=== PATIENT | female | born 1990 | race Caucasian/White ===

== ENCOUNTER 2018-09-27 21:01 | Emergency (ER) | payer BC, SELFPAY ==
[2018-09-27 21:01] VITALS: BP 152/98; PULSE 95; RESP 28; TEMP 36.1; O2SAT 98; BMI 23.0
[2018-09-27 21:32] LABS: Bacteria 0 SEEN /hpf (None Seen); Mucous, Urine 0 SEEN /hpf (<or=2+); Red Blood Cells-Urine 0 SEEN /hpf (0-5); Squamous Epithelial Cells - UA 0 SEEN /hpf (5-10); White Blood Cells 0 SEEN /hpf (0-5)
[2018-09-27 21:39] LABS: Absolute Neutrophil Count 3.2 X10^3/uL (2.0-7.7); Eosinophils% 1.5 % (0-5); Hematocrit 39.1 % (37-47); Hemoglobin 12.6 g/dl (12.0-15.0); Lymphocyte % 39.5 % (19-41); Mean Corp Hgb Conc 32.2 g/gl (32-36); Mean Corpuscular Hgb 29.6 pg (27.0-32.0); Mean Platelet Vol. 11.2 fl (6.2-12.0); Monocyte% 10.6 % (0-10); Neutrophil # 3.17 X10^3/uL (2.7-7.7); Neutrophil % 48.2 % (47-70); POSITIVE DIFFERENTIAL NO; Platelet Count 240 K/mm3 (150-450); RBC Distribution Width CV 13.4 % (11.6-14.6); RBC Distribution Width SD 44.7 fl (35.1-43.9); Red Blood Count 4.25 M/mm3 (4.2-5.4); White Blood Count 6.6 K/mm3 (4.4-11.0)
[2018-09-27 21:40] LABS: POSITIVE COUNT NO; POSITIVE MORPHOLOGY NO
[2018-09-27 21:50] LABS: Color, Urine Yellow (Yellow); Glucose, Dipstick Normal (Normal); Ketone-Dipstick Negative (Negative); Leukocyte Esterase-Dipstick Negative /ul (Negative); Nitrite-Dipstick Negative (Negative); Occult Blood-Urine Negative /ul (Negative); Protein-Dipstick Negative (Negative); Urine Bilirubin Dipstick Negative (Negative); Urine Clarity Clear (Clear); Urine Urobilinogen Normal (Normal)
[2018-09-27 21:50] LABS: Anion Gap 7 (5-15); BUN 11 mg/dL (7-18); BUN/Creat Ratio 11.1 RATIO (10-20); Calcium,Total 8.7 mg/dL (8.5-10.1); Chloride 107 mmol/L (98-107); Creatinine, Serum 0.99 mg/dL (0.55-1.02); EST Glomerular Filtration Rate 71 mL/min (>60); Est Glom Filt Rate - Afr Amer 86 mL/min (>60); Estimated Creatinine Clearance 70.61 ml/min; Glucose 82 mg/dL (74-106); Potassium 3.6 mmol/L (3.5-5.1); Sodium Level 139 mmol/L (136-145)
[2018-09-27 21:55] LABS: Pregnancy, Serum, hCG Quali. NEGATIVE Negative (0-9 Nonpreg)
--- NOTE | 2018-09-27 21:55 | CT_ITS ---
STUDY: CT ABDOMEN AND PELVIS WITHOUT CONTRAST REASON FOR EXAM: Female, 28 years old. Chronic left lower quadrant pain RADIATION DOSAGE (If Supplied By Facility): CTDIvol = ( 6.06 ) mGy, DLP = ( 272.95 ) mGycm TECHNIQUE: Transaxial images were obtained from the dome of the diaphragm to the symphysis pubis without oral contrast, and without intravenous contrast. Sagittal and coronal images were reconstructed. Individualized dose optimization techniques were used for this CT. COMPARISON: None. FINDINGS: The visualized lung bases are unremarkable. The visualized portions of the heart are within normal limits. Normal liver. Normal gallbladder and extrahepatic biliary system. Normal spleen. Normal pancreas. Normal bilateral adrenal glands. Normal right kidney. Normal left kidney. Normal visualized stomach. Nonspecific diffuse ileus pattern with fecal retention in the colon. No evidence for small bowel obstruction or pneumoperitoneum. No evidence for acute appendicitis Normal abdominal aorta. Normal inferior vena cava. Normal retroperitoneum. Incompletely distended mildly thick-walled bladder likely of no significance IUD noted within the endometrial canal of the uterine fundus. Normal abdominal wall. Normal osseous structures. CT/Abdomen/Pelvis without Cont IMPRESSION: Nonspecific ileus with diffuse fecal retention in the colon. Intrauterine IUD noted at the uterine fundus. No other significant abnormalities Electronically Signed: Salvador Merida MD at 22:44 EST , Service support ,
[2018-09-27 22:45] VITALS: BP 114/77; PULSE 64; PULSE 68; RESP 18; TEMP 36.5; O2SAT 99
--- NOTE | 2018-09-27 23:45 | ED.VISSUMM ---
- ER Visit Summary Date of Service: 09/27/18 Chief Complaint: [Abdominal pain] History of Present Illness: The patient is a 28 F [presents with abdominal pain that started this evening. Patient states the pain started around 8:30 PM. Patient has been on her menstrual period for last for 5 days. Patient states that every time she has a period or she ovulates she has similar pain to this. Patient states that the symptoms have been going on for years and no etiology has been found. Patient denies any fevers. She denies any vomiting although when the pain was severe she had some nausea. Patient denies urinary symptoms. Patient has an IUD. Patient has a scheduled appointment with PHYSICS DEPARTMENT CHAIR but not till October.] On my evaluation of the patient she states that the pain is significantly improved compared to what it was when she initially came in when it was a 10 out of 10. Patient describes upper abdomen discomfort that is dull and somewhat crampy but today she had a severe stabbing sharp pain in the left lower quadrant. Physical Examination: [HEENT-PERRLA, EOMI. Cranial nerves II through XII grossly intact. TMs clear. Mucous membranes moist. No adenopathy. Cardiovascular-regular rate and rhythm without murmur or ectopy Lungs-clear to auscultation, chest wall stable without crepitus or subcu emphysema Abdomen-hyperactive bowel sounds. Mild diffuse tenderness. There is no rebound, rigidity, or perineal signs. Extremities-intact ?4, normal range of motion, normal pulses, atraumatic] Test Results: [CBC with differential obtained was normal. Chemistries were normal. HCG was negative. Urine was normal. CT flank showed a nonspecific ileus otherwise nothing acute.] Emergency Department Course and Treatment: [Patient did not want anything for pain in the emergency department. On repeat evaluation at 2144 she is significantly improved and her abdomen is benign.] Treatment Plan: [Patient will be given a prescription for Bentyl and advised to follow-up with PHYSICS DEPARTMENT CHAIR as well as GI if her symptoms persist. It is unclear if patient has endometriosis given that the symptoms are related to her menstrual period versus IBS versus other.] Disposition: [Discharged home in stable condition] Impression: [Abdominal pain-etiology uncertain.] This note was generated with [employer] software. It may contain incorrect words, spelling, and punctuation that were not noted in review of the chart prior to signing ED Disposition - Plan for ED Patient: Referrals: Meredith Marshall DO [Primary Care Provider] -
--- NOTE | 2018-09-27 23:48 | ED.DCSUM_ITS ---
- ER Visit Summary Date of Service: 09/27/18 Chief Complaint: [Abdominal pain] History of Present Illness: The patient is a 28 F [presents with abdominal pain that started this evening. Patient states the pain started around 8:30 PM. Patient has been on her menstrual period for last for 5 days. Patient states that every time she has a period or she ovulates she has similar pain to this. Patient states that the symptoms have been going on for years and no etiology has been found. Patient denies any fevers. She denies any vomiting although when the pain was severe she had some nausea. Patient denies urinary symptoms. Patient has an IUD. Patient has a scheduled appointment with CHEMISTRY PHYSICS TEACHER but not till October.] On my evaluation of the patient she states that the pain is significantly improved compared to what it was when she initially came in when it was a 10 out of 10. Patient describes upper abdomen discomfort that is dull and somewhat crampy but today she had a severe stabbing sharp pain in the left lower quadrant. Physical Examination: [HEENT-PERRLA, EOMI. Cranial nerves II through XII grossly intact. TMs clear. Mucous membranes moist. No adenopathy. Cardiovascular-regular rate and rhythm without murmur or ectopy Lungs-clear to auscultation, chest wall stable without crepitus or subcu emphysema Abdomen-hyperactive bowel sounds. Mild diffuse tenderness. There is no rebound, rigidity, or perineal signs. Extremities-intact ?4, normal range of motion, normal pulses, atraumatic] Test Results: [CBC with differential obtained was normal. Chemistries were normal. HCG was negative. Urine was normal. CT flank showed a nonspecific ileus otherwise nothing acute.] Emergency Department Course and Treatment: [Patient did not want anything for pain in the emergency department. On repeat evaluation at 2144 she is significantly improved and her abdomen is benign.] Treatment Plan: [Patient will be given a prescription for Bentyl and advised to follow-up with CHEMISTRY PHYSICS TEACHER as well as GI if her symptoms persist. It is unclear if patient has endometriosis given that the symptoms are related to her menstrual period versus IBS versus other.] Disposition: [Discharged home in stable condition] Impression: [Abdominal pain-etiology uncertain.] This note was generated with [employer]ation software. It may contain incorrect words, spelling, and punctuation that were not noted in review of the chart prior to signing ED Disposition - Plan for ED Patient: Referrals: Meredith Marshall DO [Primary Care Provider] -
--- NOTE | 2018-09-27 23:48 | ED.DEP ---
ED Disposition - Plan for ED Patient: Prescriptions: Dicyclomine HCl [Bentyl] 20 mg PO TIDAC #20 cap Referrals: Meredith Marshall DO [Primary Care Provider] - 3-5 Days Freddie Hair MD [STAFF PHYSICIAN] - 3-5 Days
[2018-09-28 00:02] VITALS: BP 114/77; PULSE 88; RESP 18; TEMP 36.5; O2SAT 99
[2018-09-28 00:05] VITALS: PULSE 72; RESP 18; O2SAT 99
== END 2018-09-28 00:06 | disposition home or self-care (01) ==
LOC: ED 22:01
PROVIDERS: Emergency Provider Emergency Medicine; Family Provider Family Medicine; PCP Family Medicine
DX: R10.9 Unspecified abdominal pain (principal); F12.90 Cannabis use, unspecified, uncomplicated
CPT/HCPCS: 74176; 80048; 81001; 84703; 85025; 99283; A4216

== ENCOUNTER → 2018-12-01 11:44 | Outpatient (CLI) | payer BC, SELFPAY ==
[2018-12-01 11:09] VITALS: BMI 23.0
[2018-12-01 13:53] LABS: HIV - WCH Non-Reactive (Nonreactive)
[2018-12-01 18:20] LABS: Chlamydia Trachomatis by PCR Negative (Negative); Neisserai gonorrhoeae by PCR Negative (Negative); Probe Check PASS; Sample Adequacy Control PASS; Specimen Processing Control PASS
[2018-12-02 01:44] LABS: Rapid Plasmin Reagin (RPR) NONREACTIVE (NONREACTIVE)
[2018-12-03 12:06] LABS: HCV Quant. RNA PCR HCV Not Detected IU/mL (.)
[2018-12-05 11:16] LABS: HSV 1 IgG < 0.91 index (0.00-0.90); HSV 2 IgG < 0.91 index (0.00-0.90)
[2018-12-06 17:13] LABS: HPV Reflexed? NOT INDICATED
== END ==
PROVIDERS: Family Provider Family Medicine; PCP Family Medicine; Referring Provider Nurse Practitioner Women's Health; Visit Provider Nurse Practitioner Women's Health
DX: Z11.3 Encounter for screening for infections with a predominantly sexual mode of transmission (principal); Z12.4 Encounter for screening for malignant neoplasm of cervix
CPT/HCPCS: 36415; 86592; 86695; 86696; 86703; 87491; 87522; 87591; 87624; 88175; G0145

== ENCOUNTER → 2018-12-08 11:08 | Outpatient (CLI) | payer BC, SELFPAY ==
[2018-12-01 11:09] VITALS: BMI 23.0
--- NOTE | 2018-12-08 11:11 | US_ITS ---
STUDY: ULTRASOUND OF THE FEMALE PELVIS - COMPLETE REASON FOR EXAM: Female, 28 years old. Pain LMP: 11/14/2018 TECHNIQUE: Transabdominal and Transvaginal TECHNICAL QUALITY: Adequate. COMPARISON: None. FINDINGS: The uterus is anteverted and is tilted to the right side of the pelvis. The uterus measures 7.9 x 4.3 x 4.3 cm. Normal uterine cervix. The endometrium measures 6 mm in thickness, and is hyperechoic. There is no demonstrated endometrial mass. There is no demonstrated myometrial mass. I.U.D. - The patient does have an I.U.D. IUD is in a satisfactory position The right ovary is visualized. The right ovary measures 3.3 x 3.0 x 2.0 cm. There is no right ovarian cyst or ovarian mass. There is no visualized right adnexal mass or complex lesion. There is normal arterial and normal venous vascularity. The left ovary is visualized. The left ovary measures 2.4 x 2.2 x 1.6 cm. There is no left ovarian cyst or ovarian mass. There is no visualized left adnexal mass or complex lesion. There is normal arterial and normal venous vascularity. There is no fluid in the cul-de-sac. The bladder is sonographically normal US/Pelvic (Non ) IMPRESSION: Normal female pelvis. IUD noted in satisfactory position Electronically Signed: Octavio Rose MD at 13:33 EDT , Service support ,
--- NOTE | 2018-12-08 11:11 | US_ITS ---
STUDY: ULTRASOUND OF THE FEMALE PELVIS - COMPLETE REASON FOR EXAM: Female, 28 years old. Pain LMP: 11/14/2018 TECHNIQUE: Transabdominal and Transvaginal TECHNICAL QUALITY: Adequate. COMPARISON: None. FINDINGS: The uterus is anteverted and is tilted to the right side of the pelvis. The uterus measures 7.9 x 4.3 x 4.3 cm. Normal uterine cervix. The endometrium measures 6 mm in thickness, and is hyperechoic. There is no demonstrated endometrial mass. There is no demonstrated myometrial mass. I.U.D. - The patient does have an I.U.D. IUD is in a satisfactory position The right ovary is visualized. The right ovary measures 3.3 x 3.0 x 2.0 cm. There is no right ovarian cyst or ovarian mass. There is no visualized right adnexal mass or complex lesion. There is normal arterial and normal venous vascularity. The left ovary is visualized. The left ovary measures 2.4 x 2.2 x 1.6 cm. There is no left ovarian cyst or ovarian mass. There is no visualized left adnexal mass or complex lesion. There is normal arterial and normal venous vascularity. There is no fluid in the cul-de-sac. The bladder is sonographically normal US/Transvaginal Non- IMPRESSION: Normal female pelvis. IUD noted in satisfactory position Electronically Signed: Octavio Rose MD at 13:33 EDT , Service support ,
== END ==
PROVIDERS: Referring Provider Nurse Practitioner Women's Health; Visit Provider Nurse Practitioner Women's Health
DX: R10.2 Pelvic and perineal pain (principal)
CPT/HCPCS: 76830; 76856; 93976

== ENCOUNTER → 2019-02-09 09:19 | Outpatient (CLI) | payer BC, SELFPAY ==
[2018-12-01 11:09] VITALS: BMI 23.0
[2019-02-09 12:25] LABS: Absolute Lymphocyte Count 1.37 X10^3/ul (0.83-4.51); Absolute Neutrophil Count 3.5 X10^3/uL (2.0-7.7); Eosinophil# 0.09 X10^3/uL; Eosinophils% 1.7 % (0-5); Hematocrit 36.3 % (37-47); Hemoglobin 11.5 g/dl (12.0-15.0); Lymphocyte # 1.37 X10^3/ul (4.0); Lymphocyte % 25.1 % (19-41); Mean Corp Hgb Conc 31.7 g/gl (32-36); Mean Corpuscular Hgb 27.7 pg (27.0-32.0); Mean Corpuscular Volume 87.5 fL (81-99); Mean Platelet Vol. 11.7 fl (6.2-12.0); Monocyte# 0.45 X10^3/uL; Monocyte% 8.3 % (0-10); Neutrophil # 3.54 X10^3/uL (2.7-7.7); Neutrophil % 64.9 % (47-70); Platelet Count 253 K/mm3 (150-450); RBC Distribution Width CV 14.6 % (11.6-14.6); RBC Distribution Width SD 46.7 fl (35.1-43.9); Red Blood Count 4.15 M/mm3 (4.2-5.4); White Blood Count 5.5 K/mm3 (4.4-11.0)
[2019-02-09 12:30] LABS: POSITIVE COUNT NO; POSITIVE DIFFERENTIAL NO; POSITIVE MORPHOLOGY NO
[2019-02-09 12:41] LABS: Vitamin D,25 Hydroxy 25.9 ng/mL (29.95-100.01)
[2019-02-09 14:00] LABS: ALB/GLOB Ratio 1.2 RATIO (0.9-2.4); AST(SGOT) 14 U/L (15-37); Alanine Aminotransfer ALT/SGPT 18 U/L (13-56); Alkaline Phosphatase 45 U/L (45-117); Anion Gap 6 (5-15); BUN 13 mg/dL (7-18); Calcium,Total 8.5 mg/dL (8.5-10.1); Chloride 109 mmol/L (98-107); Cholesterol 136 mg/dL (200); Creatinine, Serum 0.76 mg/dL (0.55-1.02); EST Glomerular Filtration Rate 96 mL/min (>60); Est Glom Filt Rate - Afr Amer 116 mL/min (>60); Free T3 2.5 pg/mL (2.18-3.98); Globulin 3.3 g/dL (2.2-4.2); Glucose 85 mg/dL (74-106); High Density Lipoprotein 65 mg/dL; Iron 25 ug/dL (50-170); Protein, Total 7.3 g/dL (6.4-8.2); Sodium Level 139 mmol/L (136-145); T4 Free Direct 0.86 ng/dL (0.76-1.46); Thyroid Stim Hormone (TSH) 3.46 uIU/mL (0.358-3.74); Triglycerides 51 mg/dL; Very Low Density Lipoprotein 10 mg/dL (5-40)
== END ==
PROVIDERS: Family Provider Family Medicine; PCP Family Medicine; Visit Provider Family Medicine
DX: E55.9 Vitamin D deficiency, unspecified (principal); E78.5 Hyperlipidemia, unspecified; D64.9 Anemia, unspecified; R53.83 Other fatigue
CPT/HCPCS: 36415; 80053; 80061; 82306; 83540; 84439; 84443; 84481; 85025

== ENCOUNTER → 2020-09-23 12:52 | Outpatient (CLI) | payer OTHER, SELFPAY ==
[2018-12-01 11:09] VITALS: BMI 23.0
[2020-09-23 17:43] LABS: Absolute Lymphocyte Count 1.85 X10^3/uL (0.83-4.51); Basophil# 0.01 X10^3/uL; Basophil% 0.2 % (0-1); Eosinophil# 0.03 X10^3/uL; Eosinophils% 0.5 % (0-5); Hematocrit 36.3 % (37-47); Hemoglobin 11.3 g/dL (12.0-15.0); Lymphocyte # 1.85 X10^3/ul (4.0); Lymphocyte % 28.7 % (19-41); Mean Corp Hgb Conc 31.1 g/dL (32-36); Mean Corpuscular Volume 86.6 fL (81-99); Mean Platelet Vol. 12.7 fl (6.2-12.0); Monocyte% 7.8 % (0-10); NRBC Flagged by Analyzer 0 % (0-5); Neutrophil # 4.03 X10^3/uL (2.7-7.7); Neutrophil % 62.5 % (47-70); Platelet Count 239 K/mm3 (150-450); RBC Distribution Width CV 15.2 % (11.6-14.6); RBC Distribution Width SD 48.8 fl (35.1-43.9); Red Blood Count 4.19 M/mm3 (4.2-5.4); White Blood Count 6.4 K/mm3 (4.4-11.0)
[2020-09-23 18:05] LABS: Progesterone Level 4.98 ng/mL (See Comment)
[2020-09-23 18:41] LABS: ALB/GLOB Ratio 1.2 RATIO (0.9-2.4); AST(SGOT) 14 U/L (15-37); Alanine Aminotransfer ALT/SGPT 20 U/L (13-56); Albumin, Serum 4.2 g/dL (3.2-5.0); Alkaline Phosphatase 52 U/L (45-117); Anion Gap 7 (5-15); BUN 8 mg/dL (7-18); BUN/Creat Ratio 11.5 RATIO (10-20); Calcium,Total 8.4 mg/dL (8.5-10.1); Chloride 108 mmol/L (98-107); Creatinine, Serum 0.69 mg/dL (0.55-1.02); EST Glomerular Filtration Rate 106 mL/min (>60); Est Glom Filt Rate - Afr Amer 128 mL/min (>60); Estradiol 85.5 pg/mL; Follicle Stimulating Hormone 3.6 mIU/mL; Free T3 2.3 pg/mL (2.18-3.98); Globulin 3.4 g/dL (2.2-4.2); Glucose 80 mg/dL (74-106); Luteinizing Hormone 2.3 mIU/mL; Potassium 3.6 mmol/L (3.5-5.1); Protein, Total 7.6 g/dL (6.4-8.2); Sodium Level 139 mmol/L (136-145); Thyroid Stim Hormone (TSH) 1.79 uIU/mL (0.358-3.74)
[2020-09-27 13:47] LABS: Testosterone Free 1.1 pg/mL (0.0-4.2)
== END ==
PROVIDERS: PCP Family Medicine; Visit Provider Family Medicine
DX: N93.8 Other specified abnormal uterine and vaginal bleeding (principal); R53.83 Other fatigue; Z51.81 Encounter for therapeutic drug level monitoring
CPT/HCPCS: 36415; 80053; 82670; 83001; 83002; 84144; 84402; 84439; 84443; 84481; 85025

== ENCOUNTER → 2021-06-11 18:00 | Outpatient (CLI) | payer OTHER, SELFPAY | PROVIDERS: PCP Family Medicine; Visit Provider Family Medicine | DX: Z20.828 Contact with and (suspected) exposure to other viral communicable diseases (principal) | CPT/HCPCS: 87635; U0005; U0003 ==

== ENCOUNTER → 2022-10-22 | Outpatient (CLI) | payer BC, SELFPAY ==
[2022-10-22 12:34] LABS: Erythrocyte Sedimentation Rate < 1 mm/hr (0-30)
[2022-10-22 12:36] LABS: Absolute Lymphocyte Count 1.38 X10^3/uL (0.83-4.51); Absolute Neutrophil Count 3.5 X10^3/uL (2.0-7.7); Basophil# 0.01 X10^3/uL; Basophil% 0.2 % (0-1); Eosinophil# 0.06 X10^3/uL; Eosinophils% 1.1 % (0-5); Hematocrit 39.5 % (37-47); Hemoglobin 12.5 g/dL (12.0-15.0); Lymphocyte # 1.38 X10^3/ul (0.83-4.51); Lymphocyte % 25.2 % (19-41); Mean Corp Hgb Conc 31.6 g/dL (32-36); Mean Corpuscular Hgb 29.9 pg (27.0-32.0); Mean Corpuscular Volume 94.5 fL (81-99); Mean Platelet Vol. 11.8 fl (6.2-12.0); Monocyte# 0.57 X10^3/uL; Monocyte% 10.4 % (0-10); NRBC Flagged by Analyzer 0 % (0-5); Neutrophil # 3.45 X10^3/uL (2.7-7.7); Neutrophil % 62.9 % (47-70); Platelet Count 214 K/mm3 (150-450); RBC Distribution Width CV 14.1 % (11.6-14.6); RBC Distribution Width SD 49.2 fl (35.1-43.9); Red Blood Count 4.18 M/mm3 (4.2-5.4); White Blood Count 5.5 K/mm3 (4.4-11.0)
[2022-10-22 12:57] LABS: ALB/GLOB Ratio 1.2 RATIO (0.9-2.4); AST(SGOT) 15 U/L (15-37); Alanine Aminotransfer ALT/SGPT 24 U/L (13-56); Albumin, Serum 3.8 g/dL (3.2-5.0); Alkaline Phosphatase 41 U/L (45-117); Anion Gap 7 (5-15); BUN 13 mg/dL (7-18); BUN/Creat Ratio 15.6 RATIO (10-20); CRP < 2.90 mg/L (0.0-3.0); Calcium,Total 8.5 mg/dL (8.5-10.1); Chloride 108 mmol/L (98-107); Cholesterol 160 mg/dL (200); Creatinine, Serum 0.83 mg/dL (0.55-1.02); EST Glomerular Filtration Rate 85 mL/min (>60); Est Glom Filt Rate - Afr Amer 103 mL/min (>60); Free T3 2.6 pg/mL (2.18-3.98); Globulin 3.2 g/dL (2.2-4.2); Glucose 83 mg/dL (74-106); High Density Lipoprotein 72 mg/dL; LDH 142 U/L (84-246); Potassium 4.1 mmol/L (3.5-5.1); Sodium Level 140 mmol/L (136-145); T4 Free Direct 0.89 ng/dL (0.76-1.46); Thyroid Stim Hormone (TSH) 1.95 uIU/mL (0.358-3.74); Triglycerides 25 mg/dL; Very Low Density Lipoprotein 5 mg/dL (5-40)
== END | disposition home or self-care (01) ==
PROVIDERS: PCP Family Medicine; Visit Provider Family Medicine
DX: M25.50 Pain in unspecified joint (principal); M79.10 Myalgia, unspecified site; R59.1 Generalized enlarged lymph nodes; E03.9 Hypothyroidism, unspecified; Z13.220 Encounter for screening for lipoid disorders; Z51.81 Encounter for therapeutic drug level monitoring
CPT/HCPCS: 36415; 80053; 80061; 83615; 84439; 84443; 84481; 85025; 85652; 86140

== ENCOUNTER → 2023-12-31 | Outpatient (CLI) | payer SELFPAY ==
[2023-12-31 17:04] LABS: Absolute Lymphocyte Count 1.37 X10^3/uL (0.83-4.51); Absolute Neutrophil Count 3.1 X10^3/uL (2.0-7.7); Basophil# 0.01 X10^3/uL; Basophil% 0.2 % (0-1); Eosinophil# 0.07 X10^3/uL; Eosinophils% 1.4 % (0-5); Hematocrit 37.7 % (37-47); Hemoglobin 12.2 g/dL (12.0-15.0); Lymphocyte # 1.37 X10^3/ul (0.83-4.51); Lymphocyte % 26.4 % (19-41); Mean Corp Hgb Conc 32.4 g/dL (32-36); Mean Corpuscular Hgb 28.7 pg (27.0-32.0); Mean Corpuscular Volume 88.7 fL (81-99); Mean Platelet Vol. 11.4 fl (6.2-12.0); Monocyte# 0.59 X10^3/uL; Monocyte% 11.4 % (0-10); NRBC Flagged by Analyzer 0 % (0-5); Neutrophil # 3.13 X10^3/uL (2.7-7.7); Neutrophil % 60.4 % (47-70); Platelet Count 207 K/mm3 (150-450); RBC Distribution Width CV 15.7 % (11.6-14.6); RBC Distribution Width SD 51.1 fl (35.1-43.9); Red Blood Count 4.25 M/mm3 (4.2-5.4); White Blood Count 5.2 K/mm3 (4.4-11.0)
[2023-12-31 17:24] LABS: Hemoglobin A1c 4.9 % (3.8-5.6)
[2023-12-31 17:35] LABS: Vitamin B12 428 pg/mL (211-911); Vitamin D,25 Hydroxy 47.2 ng/mL
[2023-12-31 17:40] LABS: ALB/GLOB Ratio 1.3 RATIO (0.9-2.4); AST(SGOT) 31 U/L (15-37); Alanine Aminotransfer ALT/SGPT 65 U/L (13-56); Albumin, Serum 3.7 g/dL (3.2-5.0); Alkaline Phosphatase 57 U/L (45-117); Anion Gap 6 (5-15); BUN 13 mg/dL (7-18); BUN/Creat Ratio 27.2 RATIO (10-20); Chloride 109 mmol/L (98-107); Cholesterol 133 mg/dL (200); Creatinine, Serum 0.48 mg/dL (0.55-1.02); EST Glomerular Filtration Rate 160 mL/min (>60); Est Glom Filt Rate - Afr Amer 193 mL/min (>60); Ferritin 96 ng/mL (8-252); Globulin 2.9 g/dL (2.2-4.2); Glucose 84 mg/dL (74-106); High Density Lipoprotein 57 mg/dL; Iron 90 ug/dL (50-170); Potassium 3.9 mmol/L (3.5-5.1); Protein, Total 6.6 g/dL (6.4-8.2); Sodium Level 139 mmol/L (136-145); T4 Free Direct 2.62 ng/dL (0.76-1.46); Thyroid Stim Hormone (TSH) 0.01 uIU/mL (0.358-3.74); Triglycerides 52 mg/dL; Very Low Density Lipoprotein 10 mg/dL (5-40)
== END | disposition home or self-care (01) ==
PROVIDERS: PCP Family Medicine; Referring Provider Family Medicine; Visit Provider Family Medicine
DX: Z00.00 Encounter for general adult medical examination without abnormal findings (principal); E55.9 Vitamin D deficiency, unspecified; E03.9 Hypothyroidism, unspecified; R53.83 Other fatigue; Z83.3 Family history of diabetes mellitus
CPT/HCPCS: 36415; 80053; 80061; 82306; 82607; 82728; 83036; 83540; 84439; 84443; 85025

== ENCOUNTER → 2024-02-03 | Outpatient (CLI) | payer OTHER, SELFPAY ==
[2024-02-03 18:45] LABS: Free T3 1.9 pg/mL (2.18-3.98); T4 Free Direct 0.58 ng/dL (0.76-1.46); Thyroid Stim Hormone (TSH) 1.08 uIU/mL (0.358-3.74)
[2024-02-07 16:09] LABS: Thyroglobulin Antibody < 1.0 IU/mL (0.0-0.9); Thyroid Peroxidase AB 110 IU/mL (0-34)
== END | disposition home or self-care (01) ==
LOC: MTLAB 16:25
PROVIDERS: PCP Family Medicine; Referring Provider Family Medicine; Visit Provider Family Medicine
DX: E03.9 Hypothyroidism, unspecified (principal)
CPT/HCPCS: 36415; 84439; 84443; 84481; 86376; 86800

== ENCOUNTER → 2024-03-28 | Outpatient (CLI) | payer OTHER, SELFPAY ==
[2024-03-28 15:49] LABS: Free T3 2.2 pg/mL (2.18-3.98); T4 Free Direct 0.56 ng/dL (0.76-1.46)
[2024-03-30 14:11] LABS: Thyroglobulin Antibody < 1.0 IU/mL (0.0-0.9); Thyroid Peroxidase AB 188 IU/mL (0-34)
== END | disposition home or self-care (01) ==
LOC: MTLAB 11:09
PROVIDERS: PCP Family Medicine; Referring Provider Family Medicine; Visit Provider Family Medicine
DX: E03.9 Hypothyroidism, unspecified (principal)
CPT/HCPCS: 36415; 84439; 84443; 84481; 86376; 86800

== ENCOUNTER → 2024-04-28 | Outpatient (CLI) | payer OTHER, SELFPAY ==
[2024-04-28 18:52] LABS: Free T3 2.7 pg/mL (2.18-3.98); T4 Free Direct 0.88 ng/dL (0.76-1.46); Thyroid Stim Hormone (TSH) 0.654 uIU/mL (0.358-3.740)
== END | disposition home or self-care (01) ==
PROVIDERS: PCP Family Medicine; Referring Provider Family Medicine; Visit Provider Family Medicine
DX: E03.9 Hypothyroidism, unspecified (principal)
CPT/HCPCS: 36415; 84439; 84443; 84481

== ENCOUNTER → 2024-06-28 | Outpatient (CLI) | payer OTHER, SELFPAY ==
[2024-06-28 18:39] LABS: Free T3 7.7 pg/mL (2.18-3.98); T4 Free Direct 1.73 ng/dL (0.76-1.46); Thyroid Stim Hormone (TSH) 0.005 uIU/mL (0.358-3.740)
== END | disposition home or self-care (01) ==
PROVIDERS: PCP Family Medicine; Referring Provider Family Medicine; Visit Provider Family Medicine
DX: E03.9 Hypothyroidism, unspecified (principal)
CPT/HCPCS: 36415; 84439; 84443; 84481

== ENCOUNTER → 2024-08-14 | Outpatient (CLI) | payer OTHER, SELFPAY ==
[2024-08-14 18:25] LABS: Free T3 8.5 pg/mL (2.18-3.98); T4 Free Direct 1.82 ng/dL (0.76-1.46); Thyroid Stim Hormone (TSH) < 0.005 uIU/mL (0.358-3.740)
== END | disposition home or self-care (01) ==
PROVIDERS: PCP Family Medicine; Referring Provider Family Medicine; Visit Provider Family Medicine
DX: E03.9 Hypothyroidism, unspecified (principal)
CPT/HCPCS: 36415; 84439; 84443; 84481

== ENCOUNTER → 2024-09-19 | Outpatient (CLI) | payer OTHER, SELFPAY ==
[2024-09-19 17:59] LABS: Free T3 4.2 pg/mL (2.18-3.98); T4 Free Direct 1.22 ng/dL (0.76-1.46); Thyroid Stim Hormone (TSH) < 0.005 uIU/mL (0.358-3.740)
[2024-09-21 12:08] LABS: ANTINUCLEAR ANTIBODIES DIRECT Negative (Negative)
[2024-09-22 15:07] LABS: Thyroglobulin Antibody < 1.0 IU/mL (0.0-0.9); Thyroid Peroxidase AB 153 IU/mL (0-34)
== END | disposition home or self-care (01) ==
LOC: MTLAB 16:39
PROVIDERS: PCP Family Medicine; Referring Provider Family Medicine; Visit Provider Family Medicine
DX: E03.9 Hypothyroidism, unspecified (principal)
CPT/HCPCS: 36415; 84439; 84443; 84481; 86038; 86376; 86800

== ENCOUNTER → 2024-11-02 | Outpatient (CLI) | payer OTHER, SELFPAY ==
[2024-11-02 18:30] LABS: Free T3 3.1 pg/mL (2.18-3.98); Thyroid Stim Hormone (TSH) 0.063 uIU/mL (0.300-4.200)
== END | disposition home or self-care (01) ==
PROVIDERS: PCP Family Medicine; Referring Provider Family Medicine; Visit Provider Family Medicine
DX: E03.9 Hypothyroidism, unspecified (principal)
CPT/HCPCS: 36415; 84439; 84443; 84481

== ENCOUNTER → 2024-12-21 | Outpatient (CLI) | payer OTHER, SELFPAY ==
[2024-12-21 14:22] LABS: Free T3 2.8 pg/mL (2.18-3.98); Thyroid Stim Hormone (TSH) 0.721 uIU/mL (0.300-4.200)
== END | disposition home or self-care (01) ==
LOC: MTLAB 10:08
PROVIDERS: PCP Family Medicine; Referring Provider Nurse Practitioner Family; Visit Provider Nurse Practitioner Family
DX: E03.9 Hypothyroidism, unspecified (principal)
CPT/HCPCS: 36415; 84439; 84443; 84481

== ENCOUNTER → 2025-02-06 | Outpatient (CLI) | payer OTHER, SELFPAY ==
[2025-02-06 19:12] LABS: Estradiol 34.3 pg/mL; Follicle Stimulating Hormone 7.4 mIU/mL; Free T3 2.5 pg/mL (2.18-3.98); T4 Total, Thyroxin 4.1 ug/dL (4.8-13.9)
[2025-02-07 14:37] LABS: T3 Total - Triiodothyronine 0.82 ng/mL (0.80-2.00)
[2025-02-08 04:59] LABS: PROGESTERONE 0.3 ng/mL (.)
== END | disposition home or self-care (01) ==
PROVIDERS: PCP Family Medicine; Referring Provider Family Medicine; Visit Provider Family Medicine
DX: E05.90 Thyrotoxicosis, unspecified without thyrotoxic crisis or storm (principal); N93.8 Other specified abnormal uterine and vaginal bleeding
CPT/HCPCS: 36415; 82670; 83001; 83002; 84144; 84436; 84439; 84443; 84480; 84481

== ENCOUNTER → 2025-02-21 | Outpatient (CLI) | payer OTHER, SELFPAY ==
[2025-02-21 17:48] LABS: Hematocrit 38.5 % (37-47); Hemoglobin 12.7 g/dL (12.0-15.0); Immature Granulocytes Count 0.010 X10^3/uL (0.0-0.0); Mean Corp Hgb Conc 33.0 g/dL (32-36); Mean Corpuscular Volume 93.9 fL (81-99); Mean Platelet Vol. 12.0 fl (6.2-12.0); NRBC Flagged by Analyzer 0 % (0-5); Platelet Count 223 K/mm3 (150-450); RBC Distribution Width CV 13.1 % (11.6-14.6); RBC Distribution Width SD 44.9 fl (35.1-43.9); Red Blood Count 4.10 M/mm3 (4.2-5.4); White Blood Count 5.7 K/mm3 (4.4-11.0)
[2025-02-21 18:11] LABS: AST(SGOT) 18 U/L (<=31); Alanine Aminotransfer ALT/SGPT 13 U/L (<=34); Albumin, Serum 4.4 g/dL (3.5-5.0); Alkaline Phosphatase 70 U/L (35-104); Anion Gap 11 (5-15); BUN 12 mg/dL (4-19); BUN/Creat Ratio 17.3 RATIO (10-20); Calcium,Total 8.8 mg/dL (7.6-11.0); Carbon Dioxide 22.1 mmol/L (21.0-32.0); Chloride 105 mmol/L (98-108); Free T3 4.6 pg/mL (2.18-3.98); Globulin 2.3 g/dL (2.2-4.2); Glucose 86 mg/dL (70-99); Potassium 4.3 mmol/L (3.3-5.1)
[2025-02-21 18:29] LABS: hCG Titer Quant., Serum < 1 mIU/mL (<9 non-preg)
== END | disposition home or self-care (01) ==
LOC: BFHLAB 15:43
PROVIDERS: PCP Family Medicine; Referring Provider Family Medicine; Visit Provider Family Medicine
DX: R55 Syncope and collapse (principal); E05.90 Thyrotoxicosis, unspecified without thyrotoxic crisis or storm
CPT/HCPCS: 36415; 80053; 84439; 84443; 84481; 84702; 85025

== ENCOUNTER → 2025-03-14 | Outpatient (CLI) | payer OTHER, SELFPAY ==
[2025-03-14 18:34] LABS: Free T3 2.5 pg/mL (2.18-3.98)
== END | disposition home or self-care (01) ==
LOC: MTLAB 16:06
PROVIDERS: PCP Family Medicine; Referring Provider Internal Medicine Endocrinology, Diabetes & Metabolism; Visit Provider Internal Medicine Endocrinology, Diabetes & Metabolism
DX: E06.3 Autoimmune thyroiditis (principal)
CPT/HCPCS: 36415; 84439; 84443; 84481

== ENCOUNTER → 2025-04-03 | Outpatient (CLI) | payer OTHER, SELFPAY ==
[2025-04-03 19:43] LABS: Free T3 3.0 pg/mL (2.18-3.98)
== END | disposition home or self-care (01) ==
LOC: MTLAB 14:31
PROVIDERS: PCP Family Medicine; Referring Provider Internal Medicine Endocrinology, Diabetes & Metabolism; Visit Provider Internal Medicine Endocrinology, Diabetes & Metabolism
DX: E06.3 Autoimmune thyroiditis (principal)
CPT/HCPCS: 36415; 84439; 84443; 84481

== ENCOUNTER → 2025-05-08 | Outpatient (CLI) | payer OTHER, SELFPAY ==
[2025-05-08 19:13] LABS: Free T3 3.0 pg/mL (2.18-3.98)
== END | disposition home or self-care (01) ==
LOC: MTLAB 16:49
PROVIDERS: PCP Family Medicine; Referring Provider Internal Medicine Endocrinology, Diabetes & Metabolism; Visit Provider Internal Medicine Endocrinology, Diabetes & Metabolism
DX: E06.3 Autoimmune thyroiditis (principal)
CPT/HCPCS: 36415; 84439; 84443; 84481

== ENCOUNTER → 2025-05-22 | Outpatient (CLI) | payer OTHER, SELFPAY ==
[2025-05-22 18:22] LABS: Free T3 2.9 pg/mL (2.18-3.98)
== END | disposition home or self-care (01) ==
PROVIDERS: PCP Family Medicine; Referring Provider Internal Medicine Endocrinology, Diabetes & Metabolism; Visit Provider Internal Medicine Endocrinology, Diabetes & Metabolism
DX: E06.3 Autoimmune thyroiditis (principal)
CPT/HCPCS: 36415; 84439; 84443; 84481

== ENCOUNTER → 2025-06-12 | Outpatient (CLI) | payer OTHER, SELFPAY ==
[2025-06-12 18:22] LABS: Free T3 3.0 pg/mL (2.18-3.98)
== END | disposition home or self-care (01) ==
LOC: MTLAB 15:50
PROVIDERS: PCP Family Medicine; Referring Provider Nurse Practitioner Family; Visit Provider Nurse Practitioner Family
DX: E06.3 Autoimmune thyroiditis (principal)
CPT/HCPCS: 36415; 84439; 84443; 84481

== ENCOUNTER → 2025-07-17 | Outpatient (CLI) | payer OTHER, SELFPAY ==
[2025-07-17 17:53] LABS: Free T3 3.2 pg/mL (2.18-3.98)
== END | disposition home or self-care (01) ==
LOC: MTLAB 16:51
PROVIDERS: PCP Family Medicine; Referring Provider Internal Medicine Endocrinology, Diabetes & Metabolism; Visit Provider Internal Medicine Endocrinology, Diabetes & Metabolism
DX: E06.3 Autoimmune thyroiditis (principal)
CPT/HCPCS: 36415; 84443; 84481